=== PATIENT | male | born 1940 | race Caucasian/White ===

== ENCOUNTER 2023-02-14 13:39 | Inpatient (IN) | payer OTHER ==
[~2023-02-14] VITALS: Ht 185.4 cm; Wt 73.9 kg
[2023-02-14 15:15] LABS: Potassium 4.6 mmol/L (3.5-5.1)
[2023-02-14 15:18] LABS: BUN/Creatinine Ratio 11.9 (10.0-20.0); Bilirubin, Total 0.4 mg/dL (0.2-1.0); Total Protein 6.3 g/dL (6.4-8.2)
[2023-02-14 15:29] LABS: Basophils # (auto) 0 10 ^3/uL (0-0.2); Basophils % (auto) 0.3 % (0.0-2.0); Eosinophils # (auto) 0 10 ^3/uL (0-0.8); Eosinophils % (auto) 0.3 % (0.0-7.0); Hemoglobin 8.6 g/dL (13.5-17.5); Lymphocytes # (auto) 0.1 10 ^3/uL (0.4-5.4); Lymphocytes % (auto) 1.5 % (10.0-50.0); Mean Corpuscular Hgb Conc. 32.9 g/dL (32.0-36.0); Mean Corpuscular Volume 97.3 fL (80.0-100.0); Monocytes # (auto) 0.3 10 ^3/uL (0-1.3); Monocytes % (auto) 5.1 % (0.0-12.0); Neutrophils # (auto) 5.7 10 ^3/uL (1.6-8.6); Neutrophils % (auto) 92.8 % (37.0-80.0); Red Blood Cells 2.68 10^6/uL (4.5-5.90); Red Cell Distribution Width 16.7 % (11.8-14.3); White Blood Cell 6.2 10^3/uL (4.4-10.8)
[2023-02-14] MEDS ORDERED: CEFEPIME 1GM/ 50ML 50 ML IV ONE ×2 (15:45→20:15)
[2023-02-14] MEDS ORDERED: VANCOMYCIN PER PHARMACY 0 MG IV SCH ×2 (15:45→21:15)
[2023-02-14] MEDS ORDERED: IOHEXOL 350 MG/ML 100ML IJ ONE (15:55)
[2023-02-14] MEDS ORDERED: VANCOMYCIN 1GM/250ML 250 ML IV ONE (16:30)
[2023-02-14 18:20] VITALS: BP 129/64
[2023-02-14 19:45] VITALS: BP 138/66
[2023-02-14] MEDS ORDERED: LORazepam 2MG/ML-1ML VIAL IV ONE (19:45)
[2023-02-14] MEDS ORDERED: ALBUTEROL SULF 2.5 MG/0.5ML(0.5%) NEB SOLN NEB PRN (21:15)
[2023-02-14] MEDS ORDERED: IPRATROPIUM BROM 0.5 MG/2.5ML INH SOL NEB PRN (21:15)
[2023-02-14] MEDS ORDERED: HYDROcodone-ACET 5/325MG TAB PO PRN (21:15)
[2023-02-14] MEDS ORDERED: ACETAMINOPHEN 325 MG TAB PO PRN (21:15)
[2023-02-14] MEDS ORDERED: ALBUMIN 25% 100 ML IV ONE (21:15)
[2023-02-14] MEDS ORDERED: DEXTROSE (50%) 50ML SYRG IV PRN (21:15)
[2023-02-14] MEDS ORDERED: DOCUSATE SOD 100 MG CAP PO PRN (21:15)
[2023-02-14 21:28] LABS: Urine Bacteria NONE SEEN /hpf (None Seen); Urine Blood Negative /uL (Negative); Urine Hyaline Cast FEW /lpf (0 - 2); Urine Mucus FEW (None Seen); Urine Specific Gravity 1.028 (1.001-1.035); Urine WBC 1 /hpf (0 - 3)
[2023-02-14 21:35] VITALS: BP 120/56
[2023-02-14] MEDS ORDERED: NITROGLYCERIN 0.4 MG SL TAB SL PRN (22:15)
[2023-02-14] MEDS: SODIUM CHLOR 0.9% PF (SALINE LOCK) 10ML VIAL/SYR IV SCH (22:15)
[2023-02-14] MEDS ORDERED: MORPHINE SULFATE INJ 2 MG/ml SYRG IV PRN (22:15)
[2023-02-14] MEDS: FAMOTIDINE (10MG/ML) 2ML VL IV SCH (22:33)
[2023-02-14] MEDS: ACCU-CHEK COMFORT CURVE STRIP VI SCH (22:43)
[2023-02-14] MEDS: InsuLIN REG 1unit/0.01ml Soln (100units/ml) SC SCH (22:52)
[2023-02-14 23:49] VITALS: BP 123/64
[2023-02-15] VITALS (11 sets, daily range): BP systolic 93–156; BP diastolic 44–102
[2023-02-15] MEDS: LORazepam 2MG/ML-1ML VIAL IV PRN ×3 (00:34→14:57)
[2023-02-15 05:49] LABS: Basophils # (auto) 0 10 ^3/uL (0-0.2); Basophils % (auto) 0.2 % (0.0-2.0); Eosinophils # (auto) 0 10 ^3/uL (0-0.8); Hemoglobin 7.3 g/dL (13.5-17.5); Lymphocytes # (auto) 0.1 10 ^3/uL (0.4-5.4); Monocytes # (auto) 0.4 10 ^3/uL (0-1.3)
[2023-02-15 05:53] LABS: Eosinophils % (auto) 0.2 % (0.0-7.0); Hematocrit 22.1 % (41.0-53.0); Lymphocytes % (auto) 2.1 % (10.0-50.0); Mean Corpuscular Hemoglobin 32.2 pg (28.0-32.0); Mean Corpuscular Hgb Conc. 33.3 g/dL (32.0-36.0); Mean Corpuscular Volume 96.6 fL (80.0-100.0); Monocytes % (auto) 8.1 % (0.0-12.0); Neutrophils # (auto) 4.5 10 ^3/uL (1.6-8.6); Neutrophils % (auto) 89.4 % (37.0-80.0); Nucleated Red Blood Cells % 0.1 %; Red Blood Cells 2.28 10^6/uL (4.5-5.90); Red Cell Distribution Width 16.3 % (11.8-14.3)
[2023-02-15 06:03] LABS: Alanine Aminotransferase 10 U/L (16-61); Albumin 1.9 g/dL (3.4-5.0); Anion Gap 7 (5-15); Aspartate Aminotransferase < 3 U/L (15-37); BUN/Creatinine Ratio 11.8 (10.0-20.0); Blood Urea Nitrogen 61 mg/dL (7-18); Calcium 8.1 mg/dL (8.5-10.1); Carbon Dioxide 25 mmol/L (21-32); Chloride 106 mmol/L (98-107); GFR African American 14 mL/min; GFR Non-African American 12 mL/min; Glucose 205 mg/dL (74-106); Potassium 4.5 mmol/L (3.5-5.1); Sodium 138 mmol/L (136-145)
[2023-02-15 06:06] LABS: Alkaline Phosphatase 53 U/L (45-117); Bilirubin, Total 0.4 mg/dL (0.2-1.0); Total Protein 5.6 g/dL (6.4-8.2)
[2023-02-15] MEDS: SODIUM CHLOR 0.9% PF (SALINE LOCK) 10ML VIAL/SYR IV SCH ×3 (06:10→23:21)
[2023-02-15] MEDS: ACCU-CHEK COMFORT CURVE STRIP VI SCH ×5 (06:22→23:25)
[2023-02-15] MEDS: InsuLIN REG 1unit/0.01ml Soln (100units/ml) SC SCH ×5 (06:30→23:42)
[2023-02-15] MEDS ORDERED: cefTRIAXone 1GM/50ML D5W 50 ML IV SCH (09:00)
[2023-02-15] MEDS: ONDANSETRON HCL 4 MG/2 ML VIAL IV PRN (14:34)
[2023-02-15] MEDS ORDERED: PIPERACILLIN-TAZOB 2.25GM 50 ML IV ONE (15:30)
[2023-02-15] MEDS ORDERED: DEXTROSE (50%) 50ML SYRG IV PRN (15:30)
[2023-02-15] MEDS ORDERED: VANCOMYCIN 750mg/250ml 250 ML IV ONE (16:00)
[2023-02-15] MEDS: Nepro With Carbsteady ButterPecan 8oz Carton PO SCH (18:00)
[2023-02-15 19:12] LABS: INR 1.01 (0.9-1.15); Partial Thromboplastin Time 31.8 sec (24.6-33.4)
[2023-02-15] MEDS: PIPERACILLIN-TAZOB 2.25GM 50 ML IV SCH (23:25)
[2023-02-16] VITALS (11 sets, daily range): BP systolic 102–156; BP diastolic 43–77
[2023-02-16] MEDS: ACCU-CHEK COMFORT CURVE STRIP VI SCH ×4 (00:18→18:00)
[2023-02-16] MEDS: MORPHINE SULFATE INJ 2 MG/ml SYRG IV PRN ×4 (01:33→18:11)
[2023-02-16] MEDS: ONDANSETRON HCL 4 MG/2 ML VIAL IV PRN (01:33)
[2023-02-16] MEDS: InsuLIN REG 1unit/0.01ml Soln (100units/ml) SC SCH ×4 (06:00→18:00)
[2023-02-16] MEDS: SODIUM CHLOR 0.9% PF (SALINE LOCK) 10ML VIAL/SYR IV SCH (06:01)
[2023-02-16] MEDS: LORazepam 2MG/ML-1ML VIAL IV PRN ×3 (06:03→19:59)
[2023-02-16] MEDS ORDERED: SODIUM CHL 0.9% 1000 ML BAG XX ONE (07:00)
[2023-02-16] MEDS: Nepro With Carbsteady ButterPecan 8oz Carton PO SCH (08:00)
[2023-02-16 09:08] LABS: Basophils # (auto) 0 10 ^3/uL (0-0.2); Basophils % (auto) 0.2 % (0.0-2.0); Eosinophils # (auto) 0 10 ^3/uL (0-0.8); Lymphocytes # (auto) 0.2 10 ^3/uL (0.4-5.4); Mean Corpuscular Hemoglobin 31.9 pg (28.0-32.0); Monocytes # (auto) 0.5 10 ^3/uL (0-1.3)
[2023-02-16 09:10] LABS: Eosinophils % (auto) 0.3 % (0.0-7.0); Hematocrit 24.4 % (41.0-53.0); Mean Corpuscular Hgb Conc. 32.6 g/dL (32.0-36.0); Mean Corpuscular Volume 97.8 fL (80.0-100.0); Monocytes % (auto) 7.7 % (0.0-12.0); Neutrophils # (auto) 5.2 10 ^3/uL (1.6-8.6); Neutrophils % (auto) 88.8 % (37.0-80.0); Red Cell Distribution Width 16.2 % (11.8-14.3); White Blood Cell 5.9 10^3/uL (4.4-10.8)
[2023-02-16 09:17] LABS: Albumin 1.9 g/dL (3.4-5.0); BUN/Creatinine Ratio 11.9 (10.0-20.0); Calcium 7.5 mg/dL (8.5-10.1)
[2023-02-16 09:20] LABS: Bilirubin, Total 0.5 mg/dL (0.2-1.0); Total Protein 5.8 g/dL (6.4-8.2)
[2023-02-16] MEDS: FAMOTIDINE (10MG/ML) 2ML VL IV SCH (10:31)
[2023-02-16] MEDS: PIPERACILLIN-TAZOB 2.25GM 50 ML IV SCH (10:31)
[2023-02-16] MEDS ORDERED: VANCOMYCIN 500 MG in D5W 5% 100 ML IV ONE (20:00)
[2023-02-16] MEDS ORDERED: EPOETIN ALFA-EPBX 4,000 UNIT/ML VIAL SC ONE (21:00)
[2023-02-17] VITALS (16 sets, daily range): BP systolic 105–149; BP diastolic 50–66
[2023-02-17] MEDS: PIPERACILLIN-TAZOB 2.25GM 50 ML IV SCH ×3 (00:10→23:18)
[2023-02-17] MEDS: MORPHINE SULFATE INJ 2 MG/ml SYRG IV PRN ×3 (00:27→21:10)
[2023-02-17] MEDS: LORazepam 2MG/ML-1ML VIAL IV PRN ×3 (01:42→16:53)
[2023-02-17] MEDS ORDERED: NOREPINEPHRINE 8 MG/250ML KIT 250 ML IV ONE (01:52)
[2023-02-17] MEDS ORDERED: dilTIAZem 25 MG/5 ML VIAL IV ONE ×2 (01:53→02:00)
[2023-02-17] MEDS: InsuLIN REG 1unit/0.01ml Soln (100units/ml) SC SCH ×5 (06:00→23:41)
[2023-02-17 06:01] LABS: Basophils # (auto) 0 10 ^3/uL (0-0.2); Eosinophils # (auto) 0 10 ^3/uL (0-0.8); Lymphocytes # (auto) 0.1 10 ^3/uL (0.4-5.4); Lymphocytes % (auto) 3.1 % (10.0-50.0); Monocytes # (auto) 0.5 10 ^3/uL (0-1.3); Monocytes % (auto) 10.2 % (0.0-12.0); Neutrophils # (auto) 3.9 10 ^3/uL (1.6-8.6); Red Blood Cells 2.15 10^6/uL (4.5-5.90); White Blood Cell 4.6 10^3/uL (4.4-10.8)
[2023-02-17 06:08] LABS: Basophils % (auto) 0.2 % (0.0-2.0); Eosinophils % (auto) 1.1 % (0.0-7.0); Hematocrit 20.5 % (41.0-53.0); Mean Corpuscular Hemoglobin 32.2 pg (28.0-32.0); Mean Corpuscular Hgb Conc. 33.7 g/dL (32.0-36.0); Mean Corpuscular Volume 95.7 fL (80.0-100.0); Neutrophils % (auto) 85.4 % (37.0-80.0); Red Cell Distribution Width 15.9 % (11.8-14.3)
[2023-02-17] MEDS: ACCU-CHEK COMFORT CURVE STRIP VI SCH ×5 (06:13→23:38)
[2023-02-17 06:24] LABS: Hemoglobin 6.9 g/dL (13.5-17.5)
[2023-02-17 06:39] LABS: BUN/Creatinine Ratio 9.5 (10.0-20.0); Calcium 7.6 mg/dL (8.5-10.1)
[2023-02-17] MEDS: NOREPINEPHRINE 8 MG/250ML KIT 250 ML IV SCH (09:01)
[2023-02-17] MEDS: Nepro With Carbsteady ButterPecan 8oz Carton PO SCH ×5 (09:56→18:43)
[2023-02-17] MEDS: SODIUM CHLOR 0.9% PF (SALINE LOCK) 10ML VIAL/SYR IV SCH ×4 (09:57→21:59)
[2023-02-17] MEDS: ALBUMIN 25% 100 ML IV SCH ×5 (09:58→10:00)
[2023-02-17] MEDS ORDERED: VANCOMYCIN 500 MG in D5W 5% 100 ML IV ONE (20:00)
[2023-02-18] MEDS: LORazepam 2MG/ML-1ML VIAL IV PRN ×2 (00:27→16:25)
[2023-02-18] MEDS: NOREPINEPHRINE 8 MG/250ML KIT 250 ML IV SCH ×2 (02:00→15:33)
[2023-02-18] MEDS: ONDANSETRON HCL 4 MG/2 ML VIAL IV PRN ×2 (05:05→17:24)
[2023-02-18] MEDS: MORPHINE SULFATE INJ 2 MG/ml SYRG IV PRN ×2 (05:06→17:25)
[2023-02-18] MEDS: SODIUM CHLOR 0.9% PF (SALINE LOCK) 10ML VIAL/SYR IV SCH ×3 (05:40→21:23)
[2023-02-18] MEDS: ACCU-CHEK COMFORT CURVE STRIP VI SCH ×4 (05:48→23:29)
[2023-02-18] MEDS: InsuLIN REG 1unit/0.01ml Soln (100units/ml) SC SCH ×4 (05:55→23:32)
[2023-02-18 07:04] LABS: Anion Gap 8 (5-15); BUN/Creatinine Ratio 9.5 (10.0-20.0); Blood Urea Nitrogen 58 mg/dL (7-18); Calcium 7.8 mg/dL (8.5-10.1); Carbon Dioxide 25 mmol/L (21-32); Chloride 105 mmol/L (98-107); GFR African American 11 mL/min; GFR Non-African American 10 mL/min; Glucose 141 mg/dL (74-106); Potassium 4.8 mmol/L (3.5-5.1); Sodium 138 mmol/L (136-145)
[2023-02-18 07:05] LABS: Basophils # (auto) 0 10 ^3/uL (0-0.2); Eosinophils # (auto) 0.1 10 ^3/uL (0-0.8); Eosinophils % (auto) 1.1 % (0.0-7.0); Lymphocytes # (auto) 0.1 10 ^3/uL (0.4-5.4); Monocytes # (auto) 0.4 10 ^3/uL (0-1.3)
[2023-02-18 07:07] LABS: Basophils % (auto) 0.4 % (0.0-2.0); Hematocrit 28.7 % (41.0-53.0); Hemoglobin 9.5 g/dL (13.5-17.5); Lymphocytes % (auto) 2.6 % (10.0-50.0); Mean Corpuscular Hemoglobin 32.5 pg (28.0-32.0); Mean Corpuscular Hgb Conc. 33.2 g/dL (32.0-36.0); Mean Corpuscular Volume 97.7 fL (80.0-100.0); Monocytes % (auto) 6.8 % (0.0-12.0); Neutrophils # (auto) 4.9 10 ^3/uL (1.6-8.6); Neutrophils % (auto) 89.1 % (37.0-80.0); Nucleated Red Blood Cells % 0.1 %; Red Blood Cells 2.93 10^6/uL (4.5-5.90); Red Cell Distribution Width 17.1 % (11.8-14.3); White Blood Cell 5.5 10^3/uL (4.4-10.8)
[2023-02-18] MEDS: Nepro With Carbsteady ButterPecan 8oz Carton PO SCH ×3 (08:38→17:37)
[2023-02-18] MEDS: PIPERACILLIN-TAZOB 2.25GM 50 ML IV SCH ×2 (10:08→21:23)
[2023-02-18] MEDS: PANTOPRAZOLE 40 MG/10 ML VIAL INJ IV SCH (10:08)
[2023-02-18] MEDS ORDERED: SODIUM CHL 0.9% 1000 ML BAG XX ONE (11:15)
[2023-02-18] MEDS: ALBUMIN 25% 100 ML IV SCH ×2 (12:19→13:00)
[2023-02-18] MEDS ORDERED: AMIODARONE HCL 150 MG in D5W 5% 100 ML IV ONE (13:15)
[2023-02-18] MEDS ORDERED: AMIODARONE 450mg/250ml AE 250 ML IV SCH (13:15)
[2023-02-18] MEDS ORDERED: SODIUM CHLORIDE 0.9% 250 ML IV ONE ×2 (14:15→14:45)
[2023-02-18] MEDS: ALBUMIN 25% 50 ML IV SCH ×2 (16:08→23:09)
[2023-02-18] MEDS: AMIODARONE 450mg/250ml AE 250 ML IV SCH (19:07)
[2023-02-18] MEDS ORDERED: VANCOMYCIN 500 MG in D5W 5% 100 ML IV ONE (20:00)
[2023-02-19] VITALS (13 sets, daily range): BP systolic 99–146; BP diastolic 42–61
[2023-02-19] MEDS: LORazepam 2MG/ML-1ML VIAL IV PRN (01:01)
[2023-02-19] MEDS: ONDANSETRON HCL 4 MG/2 ML VIAL IV PRN (04:29)
[2023-02-19] MEDS: MORPHINE SULFATE INJ 2 MG/ml SYRG IV PRN (04:30)
[2023-02-19 05:14] LABS: Basophils # (auto) 0 10 ^3/uL (0-0.2); Basophils % (auto) 0.5 % (0.0-2.0); Eosinophils # (auto) 0 10 ^3/uL (0-0.8); Eosinophils % (auto) 0.6 % (0.0-7.0); Hematocrit 24.1 % (41.0-53.0); Hemoglobin 8.1 g/dL (13.5-17.5); Lymphocytes # (auto) 0.2 10 ^3/uL (0.4-5.4); Lymphocytes % (auto) 2.6 % (10.0-50.0); Mean Corpuscular Hgb Conc. 33.6 g/dL (32.0-36.0); Mean Corpuscular Volume 95.2 fL (80.0-100.0); Monocytes # (auto) 0.6 10 ^3/uL (0-1.3); Monocytes % (auto) 10.2 % (0.0-12.0); Neutrophils # (auto) 4.9 10 ^3/uL (1.6-8.6); Neutrophils % (auto) 86.1 % (37.0-80.0); Nucleated Red Blood Cells % 0.1 %; Red Blood Cells 2.54 10^6/uL (4.5-5.90); Red Cell Distribution Width 16.2 % (11.8-14.3); White Blood Cell 5.7 10^3/uL (4.4-10.8)
[2023-02-19] MEDS: MIDODRINE HCL 10 MG TAB PO SCH ×3 (05:25→16:23)
[2023-02-19] MEDS: ACCU-CHEK COMFORT CURVE STRIP VI SCH ×3 (05:25→16:32)
[2023-02-19] MEDS: SODIUM CHLOR 0.9% PF (SALINE LOCK) 10ML VIAL/SYR IV SCH ×3 (05:25→21:48)
[2023-02-19 05:27] LABS: BUN/Creatinine Ratio 7.9 (10.0-20.0); Calcium 8.4 mg/dL (8.5-10.1)
[2023-02-19] MEDS: InsuLIN REG 1unit/0.01ml Soln (100units/ml) SC SCH ×3 (05:33→18:00)
[2023-02-19] MEDS: Nepro With Carbsteady ButterPecan 8oz Carton PO SCH ×3 (08:00→16:23)
[2023-02-19] MEDS: ALBUMIN 25% 50 ML IV SCH (09:38)
[2023-02-19] MEDS: PANTOPRAZOLE 40 MG/10 ML VIAL INJ IV SCH (10:21)
[2023-02-19] MEDS: PIPERACILLIN-TAZOB 2.25GM 50 ML IV SCH ×2 (10:22→23:02)
[2023-02-19] MEDS: AMIODARONE 450mg/250ml AE 250 ML IV SCH (10:31)
[2023-02-19] MEDS: NOREPINEPHRINE 8 MG/250ML KIT 250 ML IV SCH (13:25)
[2023-02-19] MEDS ORDERED: VANCOMYCIN 500 MG in D5W 5% 100 ML IV ONE (20:00)
[2023-02-20] VITALS (25 sets, daily range): BP systolic 95–140; BP diastolic 46–104
[2023-02-20] MEDS: InsuLIN REG 1unit/0.01ml Soln (100units/ml) SC SCH ×4 (00:45→17:14)
[2023-02-20] MEDS: LORazepam 2MG/ML-1ML VIAL IV PRN (01:24)
[2023-02-20] MEDS: AMIODARONE 450mg/250ml AE 250 ML IV SCH ×2 (05:00→18:41)
[2023-02-20] MEDS: MIDODRINE HCL 10 MG TAB PO SCH ×3 (05:00→17:14)
[2023-02-20] MEDS: SODIUM CHLOR 0.9% PF (SALINE LOCK) 10ML VIAL/SYR IV SCH ×2 (06:04→14:07)
[2023-02-20] MEDS: ACCU-CHEK COMFORT CURVE STRIP VI SCH ×4 (06:04→17:14)
[2023-02-20] MEDS ORDERED: SODIUM CHL 0.9% 1000 ML BAG XX ONE (08:00)
[2023-02-20] MEDS: Nepro With Carbsteady ButterPecan 8oz Carton PO SCH ×3 (08:00→17:14)
[2023-02-20] MEDS: PANTOPRAZOLE 40 MG/10 ML VIAL INJ IV SCH (11:30)
[2023-02-20] MEDS: PIPERACILLIN-TAZOB 2.25GM 50 ML IV SCH (11:30)
[2023-02-20] MEDS: NOREPINEPHRINE 8 MG/250ML KIT 250 ML IV SCH (15:00)
[2023-02-20] MEDS ORDERED: PROPOFOL 100 ML IV ONE (16:07)
[2023-02-20] MEDS ORDERED: VANCOMYCIN 500 MG in D5W 5% 100 ML IV ONE (20:00)
[2023-02-20] MEDS ORDERED: EPOETIN ALFA-EPBX 10,000 UNIT/1ML VIAL SC ONE (21:00)
== END 2023-02-20 18:15 | disposition hospice, home (50) | DRG 189 ==
LOC: ER 13:39 → EDBD 13:39 → TELE 22:05 → DOU IN ICU 02-19 18:39
PROVIDERS: ADMIT Nurse Practitioner Family; ATTEND Internal Medicine
PROC: 5A09357 Assistance with Respiratory Ventilation, Less than 24 Consecutive Hours, Continuous Positive Airway Pressure (ICD-10-PCS; 2023-02-14)
PROC: 0W993ZZ Drainage of Right Pleural Cavity, Percutaneous Approach (ICD-10-PCS; 2023-02-15)
PROC: 5A09357 Assistance with Respiratory Ventilation, Less than 24 Consecutive Hours, Continuous Positive Airway Pressure (ICD-10-PCS; 2023-02-15)
PROC: 5A1D70Z Performance of Urinary Filtration, Intermittent, Less than 6 Hours Per Day (ICD-10-PCS; principal; 2023-02-16)
PROC: 5A09357 Assistance with Respiratory Ventilation, Less than 24 Consecutive Hours, Continuous Positive Airway Pressure (ICD-10-PCS; 2023-02-16)
PROC: 30233N1 Transfusion of Nonautologous Red Blood Cells into Peripheral Vein, Percutaneous Approach (ICD-10-PCS; 2023-02-17)
PROC: 0W993ZZ Drainage of Right Pleural Cavity, Percutaneous Approach (ICD-10-PCS; 2023-02-17)
PROC: 5A09357 Assistance with Respiratory Ventilation, Less than 24 Consecutive Hours, Continuous Positive Airway Pressure (ICD-10-PCS; 2023-02-17)
PROC: 5A1D70Z Performance of Urinary Filtration, Intermittent, Less than 6 Hours Per Day (ICD-10-PCS; 2023-02-18)
PROC: 5A1D70Z Performance of Urinary Filtration, Intermittent, Less than 6 Hours Per Day (ICD-10-PCS; 2023-02-20)
DX: J96.02 Acute respiratory failure with hypercapnia (principal); E43 Unspecified severe protein-calorie malnutrition; J69.0 Pneumonitis due to inhalation of food and vomit; N18.6 End stage renal disease; G92.8 Other toxic encephalopathy; C34.90 Malignant neoplasm of unspecified part of unspecified bronchus or lung; J90 Pleural effusion, not elsewhere classified; E87.20 Acidosis, unspecified; R78.81 Bacteremia; I48.20 Chronic atrial fibrillation, unspecified; D62 Acute posthemorrhagic anemia; I12.0 Hypertensive chronic kidney disease with stage 5 chronic kidney disease or end stage renal disease; J96.01 Acute respiratory failure with hypoxia; D63.8 Anemia in other chronic diseases classified elsewhere; E88.09 Other disorders of plasma-protein metabolism, not elsewhere classified; Z66 Do not resuscitate; E11.65 Type 2 diabetes mellitus with hyperglycemia; D69.6 Thrombocytopenia, unspecified; E11.22 Type 2 diabetes mellitus with diabetic chronic kidney disease; B95.8 Unspecified staphylococcus as the cause of diseases classified elsewhere; Z79.01 Long term (current) use of anticoagulants; Z51.5 Encounter for palliative care; Z68.21 Body mass index [BMI] 21.0-21.9, adult
CPT/HCPCS: 36415; 36600; 71045; 71275; 76604; 80048; 80053; 80202; 81001; 82306; 82805; 82962; 83036; 83605; 83735; 83880; 83970; 83986; 84100; 85025; 85610; 85730; 86850; 86900; 86901; 86920; 87040; 87077; 87081; 87186; 87205; 89051; 90935; 93005; 94640; 94660; 96365; 96367; 96375; C9113; G0378; J0696; J1815; J2405; J2543; J2704; J3490; J7060; P9047